=== PATIENT | female | born 1980 ===

== ENCOUNTER 2025-05-01 06:53 | Day surgery (SDC) | payer OTHER, SELFPAY ==
[2025-04-29 13:24] VITALS: BMI 22.3
[2025-05-01] VITALS (9 sets, daily range): BP systolic 100–147; BP diastolic 55–89; PULSE 78–105; RESP 15–26; TEMP 36.3–37.5; O2SAT 98–100
--- NOTE | 2025-05-01 | PATH_ITS ---
[facility] Accession Number: [id number] No. of containers..02 Tissue . 01 Material submitted: . PART A: bladder - BLADDER MASS PART B: body - LEFT POSTERIOR BLADDER WALL . 01 Clinical history: . B: DEEP MARGIN . 01 Diagnosis: A. URINARY BLADDER MASS, TRANSURETHRAL BLADDER TUMOR RESECTION (TUBTR): Papillary urothelial neoplasm, low-grade, noninvasive, please see microscopic description. No involvement of the lamina propria. Muscularis propria not present. . . B. LEFT POSTERIOR BLADDER WALL, BIOPSY: Minute fragment of urothelial mucosa with papillary urothelial proliferation, without significant cytologic atypia or involvement of the underlying lamina propria. No muscularis propria is present. Please see microscopic description. MRV 05/11/2025 1559 Local . 01 Electronically signed: . Michelle Jaramillo MD, Pathologist NPI- [id number] . 01 Gross description: . A. Received in formalin with two patient identifiers, and bladder mass is a 1.6 x 1.5 x 0.3 cm aggregate of ram, edematous and ragged tissue fragments, entirely submitted in A1. B. Received in formalin with two patient identifiers, and deep margin is a 0.3 x 0.3 x 0.2 cm, ram, semitranslucent tissue fragment, entirely submitted in B1. ([id number]) /MRV 05/06/2025 2206 Local . 01 Microscopic: . A, B. Initial and deeper levels have been examined. The proliferation marker Ki67 is performed showing no increased mitotic activity, overall low, 1-2%. . Microscopic examination of the biopsies reveals papillary urothelial neoplasm without overt cytologic atypia, without high-grade nuclear features, without involvement of the underlying lamina propria, and without distinct mitotic activity. The differential diagnosis of this papillary urothelial neoplasm includes urothelial papilloma or papillary urothelial neoplasm of low malignant potential (PUNLMP). . Clinical correlation and correlation with cystoscopic findings is recommended. . * This test was developed and the performance characteristics were validated by [facility]. It has not been cleared or approved by the U.S. Food and Drug Administration. . 01 Pathologist provided ICD-10: N32.89 . 01 CPT . 877729, [id number], [id number] Specimen Comment: A courtesy copy of this report has been sent to [facility] Performed at: [address] [facility], [place], [place] [id number] MD Dave Rubi MD Phone: [phone]
--- NOTE | 2025-05-01 | DI.RAD.S_ITS ---
PROCEDURE: XR ABDOMEN 1V INDICATIONS: STENT PLACEMENT TECHNIQUE: 2 intra-operative images acquired by the Urology service. COMPARISON: None. FINDINGS: Images demonstrate placement of a left-sided double-J ureteral stent in expected position. Contrast is present in the left renal calices and the bladder. IMPRESSION: Intraoperative fluoroscopy for stent placement. Refer to procedure report. Dictated by: Sherrie Healy M.D. on 05/03/2025 at 18:59 Approved by: Sherrie Healy M.D. on 05/03/2025 at 18:59
[2025-05-01] MEDS: FAMOTIDINE 20 MG/2 ML VIAL IV (07:38)
[2025-05-01] MEDS: ACETAMINOPHEN IV 1,000 MG/100 ML VIAL 400 MG IV (07:38)
[2025-05-01] MEDS: LACTATED RINGERS 1,000 ML 42 ML IV (07:40)
--- NOTE | 2025-05-01 07:46 | PM.PREOP ---
Pre-operative Note COVID-19 COVID-19 status: Not tested Interval Note History & Physical reviewed/Exam performed by Physician: Yes Changes to H&P: No
[2025-05-01] MEDS: APREPITANT 40 MG CAPSULE PO (08:44)
--- NOTE | 2025-05-01 09:09 | SUR.OPER ---
Lithotomy on padded OR bed, head on pillow, arms secured on padded arm boards at <90 degrees abduction. Legs secured in padded yellow fins stirrups. Safety strap to torso.
[2025-05-01] MEDS: LACTATED RINGERS 1,000 ML 21 ML IV (09:32)
--- NOTE | 2025-05-01 09:41 | PM.OP.1 ---
Operative Date/Time/Diagnoses Date of procedure: 05/01/25 Time of procedure: 09:00 Pre-op diagnosis: Bladder mass Post-op diagnosis: same Procedure & Clinicians Procedure: Cystoscopy Transurethral resection of bladder tumor Left retrograde ureteropyelogram Left ureteral stent placement Intraoperative interpretation of fluoroscopic images, total time < 1 hour Same procedure(s) as scheduled: No (A left ureteral stent due to no efflux from left ureteral orifice) Indications: 45 y/o F noted to have a 2.1cm echogenic lesion on her posterior bladder wall near her left ureterovesicular junction. Discussed options moving forward to include a repeat RBUS as this could represent debris or a blood clot vs performing a cystoscopy. Discussed that the more definitive test is to perform a cystoscopy. Her cystoscopy in Apr was notable for a 2cm papillary mass concerning for urothelial cell carcinoma immediately lateral to her left ureteral orifice. Discussed the need for a TURBT. Discussed risks of the procedure to include but not limited to pain, bleeding, infection, injury to urethra/prostate/bladder/ureteral orifice, need for a ureteral stent, prolonged catheterization, and possible open repair of ureteral and/or bladder injury. Surgeon: Sin No Assisted?: No Anesthesia Type: General Operative Notes Findings: 3cm bladder mass immediately lateral to left ureteral orifice, no efflux from left ureteral orifice following transurethral resection of aforementioned bladder mass, placement of left ureteral stent Closure Type: not applicable Specimen(s): other (bladder mass, deep margin) Applied: none Estimated Blood Loss (mL): 2 Blood products transfused: none Procedure in detail: Patient was identified in the preoperative holding area and consent confirmed. She was then brought to the operating room where general anesthesia was induced. She was then placed in the low lithotomy position. She was then prepped and draped in the usual sterile fashion. A surgical timeout was conducted and all were in agreement. Access to the bladder was obtained via a 21Fr cystoscope. Complete cystoscopy was then performed using a 30 and 70 degree lens. A 3cm papillary mass was appreciated immediately lateral to her left ureteral orifice. Bilateral ureteral orifices were visualized and noted to be orthotopic in nature. No other concerning lesions were appreciated. The cystoscope was then removed and her urethral meatus was serially dilated using urethral sounds from 22Fr to 30Fr. The 26Fr resectoscope with visual obturator was then advanced through her urethra and into his bladder. The working element with Gyrus loop was then assembled and passed through the resectoscope and into the bladder. The mass was then resected to its base. The resection bed was then fulgurated. The left ureteral orifice was left intact, however, no efflux was appreciated for more than 10 minutes. All bladder specimens were then manually evacuated from the bladder using the resectoscope. Hemostasis was evaluated and noted to be excellent at case end. Due to the aforementioned lack of efflux from her left ureteral orifice, the resectoscope was removed and the cystoscope was readvanced into her bladder. The left ureteral orifice was easily cannulated using a 5Fr ureteral catheter over a 0.035 sensor tip ureteral guidewire. The guidewire was removed and a left retrograde ureteropyelogram was performed which noted unremarkable left renal and ureteral architecture. The ureteral guidewire was readvanced through the ureteral catheter and into her left renal pelvis. The ureteral catheter was then removed and a 6Fr multi-length JJ ureteral stent without strings was advanced over the guidewire and into the left renal pelvis. Upon removal of the ureteral guidewire, a good curl was appreciated within the left renal pelvis and bladder upon fluoroscopy. The bladder was then drained and the cystoscope was removed. Anesthesia was reversed, she was extubated in the OR and transferred to the PACU in stable condition for recovery. Complications: none Post-operative Condition: stable Disposition: PACU Plan for aftercare: Discharge home from PACU.
== END 2025-05-01 11:58 | disposition home or self-care (01) ==
PROVIDERS: PCP Family Medicine; Referring Provider Urology; Visit Provider Urology
PROC: 0TBB8ZZ Excision of Bladder, Via Natural or Artificial Opening Endoscopic (ICD-10-PCS; CPT 52235; principal; 2025-05-01 08:30)
DX: D41.4 Neoplasm of uncertain behavior of bladder (principal)
CPT/HCPCS: 52235; 52332; 74018; 74420; 76000; C2617; J0131; J0689; J1100; J2250; J2405; J2704; J3010; J3490; J7120; J8501; Q9967